=== PATIENT | female | born 1970 | race Caucasian/White ===

== ENCOUNTER 2024-08-09 15:34 | Emergency (ER) | payer BC, SELFPAY ==
[2024-08-09 16:00] VITALS: BP 124/75; PULSE 69; RESP 20; TEMP 37; O2SAT 98; BMI 23.8
--- NOTE | 2024-08-09 16:15 | ED_ITS ---
Discharge Plan Referrals Follow up/Referrals: Oliver Da Silva [Primary Care Provider] - See instructions Print Language Print Language: Polish Discharge ED Provider: Seamus Gandara [facility] General Stated complaint: AO 08/08/24 2200 injury right thumb Mode of Arrival: Ambulatory Source of Information: Patient Limitations: No Limitations Time Seen by Provider: 08/09/24 16:15 Description of Symptoms (Recalled from Triage Doc. by RN): PATIENT STATES SHE HIT HER RIGHT THUMNAIL ON THE METAL POLE OF A TRAMPOLINE LAST NIGHT AND IT PARTIALLY TORE HER NAIL OFF HEENT Symptoms (Recalled from RN notes): No Resp Symptoms (Recalled from RN notes): No Skin Symptoms (Recalled from RN notes): Yes MS Symptoms (Recalled from RN notes): No Functional Status (Recalled from RN notes): WNL History of Present Illness Provider Complaint: Patient states that last night she took her dog out and it was on a retractable leash States that the dog took off and her right thumbnail jammed into the metal pole on the trampoline States that it ripped her nail back States that she grabbed her thumb and her said part of the nail was outside of the cuticle and she tried to push it back in States today it has been hurting her and still having some bleeding from under the nail and she came in to get it checked Related Data Allergies Allergy/AdvReac Type Severity Reaction Status Date / Time No Known Allergies Allergy Verified 08/09/24 16:16 Worker's Comp Is this a Worker's Comp case?: No [facility] Disclaimer: The information contained in this section may have been updated after the patient was seen, as this information can be updated by other users. Medical History (Updated 08/09/24 @ 16:15 by Angela Tamayo RN) Skin cancer Asthma Surgical History (Updated 08/09/24 @ 16:15 by Angela Tamayo RN) History of appendectomy History of tonsillectomy History of hysterectomy Social History Smoking Status: Unknown if ever smoked alcohol intake: never current occupational status: employed Travel in the last 8 weeks: None ROS Obtained: Yes All systems reviewed & no additional complaints except as documented and Yes Systems reviewed as appropriate & no additional complaints except as documented Constitutional Constitutional: Reports system reviewed and no additional complaints, except as documented and Reports as per HPI ENT Ears, Nose, Mouth, and Throat: Reports system reviewed and no additional complaints, except as documented and Reports as per HPI Cardiovascular Cardiovascular: Reports system reviewed and no additional complaints, except as documented and Reports as per HPI Respiratory Respiratory: Reports system reviewed and no additional complaints, except as documented and Reports as per HPI Gastrointestinal Gastrointestingal: Reports system reviewed and no additional complaints, except as documented and as per HPI Musculoskeletal Musculoskeletal: Reports system reviewed and no additional complaints, except as documented and Reports as per HPI Comments: hit right thumbnail against trampoline last night bending nail back, having bleeding and pain ever since Physical Exam General General appearance: alert and in no apparent distress Respiratory Respiratory exam: Present normal lung sounds bilaterally; Absent respiratory distress or wheezes Cardiovascular Cardiovascular exam: Present regular rate, normal rhythm and normal heart sounds Expanded Upper Extremity Exam Right: Hand L/R back image: 2 1. reports that she bent her nail back last night and tried to push it back under cuticle, bleeding noted under nail Neurological Exam Neurological exam: Present alert, oriented X3 and normal gait Medical Decision Making Scott Inquiry Pt receiving controlled substance: No Scott was queried for this patient: No Vital Signs: 08/09/24 16:00 Temperature 98.6 F Temperature Source Oral Pulse Rate [Left Brachial] 69 Respiratory Rate 20 Blood Pressure [Left Arm] 124/75 Blood Pressure Mean [Left Arm] 91 Blood Pressure Source [Left Arm] Automatic Cuff Blood Pressure Position [Left Arm] Sitting 02 Sat by Pulse Oximetry 98 Oxygen Delivery Method Room Air Medical Decision Narrative: nailbed injury, patient reports hit nail against metal on trampoline last night and bent her nail back, states she noticed one side of nail appeared to be outside of cuticle and she attempted to push it back in but since has been having bleeding and pain under the nail Discussed with patient and will transfer to the ED for further evaluation and treatment and she agreed Called ED and patient was moved to the ED for further treatment
--- NOTE | 2024-08-09 16:24 | PC.NURSE ---
PATIENT SENT TO ER PER Jona SEGURA APRN FOR FURTHER EVALUATION. REPORT GIVEN TO DR. MEJIA PER Jona SEGURA APRN. PATIENT AMBULATED TO ER WITH [facility] STAFF AT THIS TIME
[2024-08-09 16:31] VITALS: BP 120/59; PULSE 80; RESP 16; TEMP 37; O2SAT 98; BMI 29.8
--- NOTE | 2024-08-09 16:47 | XR_ITS ---
PROCEDURE INFORMATION: Exam: XR Right Hand Exam date and time: 08/09/2024 4:49 PM Age: 54 years old Clinical indication: Pain; Finger(s); Right; Additional info: Distal thumb injury TECHNIQUE: Imaging protocol: Radiologic exam of the right hand. Views: 3 or more views. COMPARISON: No relevant prior studies available. FINDINGS: Bones/joints: Normal. Soft tissues: Normal. IMPRESSION: No acute findings.
--- NOTE | 2024-08-09 16:49 | ED_ITS ---
Discharge Plan Disposition Patient Disposition: Home, Self-Care Condition: Good Referrals Follow up/Referrals: Oliver Da Silva [Primary Care Provider] - See instructions Activity Restrictions/Add. Instructions Additional Instructions/Restrictions: You can follow-up with your PCP or return to ER for any worsening signs or symptoms including redness swelling increasing pain or drainage. Your nail will take approximately 9 months to fully regrow. You can take Tylenol alternating with Motrin for any symptomatic pain. I provided you with a splint while everything heals and you may wear as tolerated. Clinical Impressions Clinical Impression: Avulsion of nail of right thumb Instructions Patient Instructions: DI for Nail Avulsion Injury Print Language Print Language: Polish Discharge ED Provider: Seamus Gandara General Adult HPI <Seamus Gandara MD - Last Filed: 08/09/24 21:52> General Chief complaint: Skin/Abscess/Foreign Body Stated complaint: AO 08/08/24 2200 injury right thumb Time Seen by Provider: 08/09/24 16:15 Mode of Arrival: Ambulatory Source of Information: Patient Limitations: No Limitations Description of Symptoms (Recalled from ER Triage Doc. by RN): PATIENT STATES SHE HIT HER RIGHT THUMNAIL ON THE METAL POLE OF A TRAMPOLINE LAST NIGHT AND IT PARTIALLY TORE HER NAIL OFF History of Present Illness HPI narrative: Patient is 54-year-old with no pertinent past medical history, right-handed who presents emergency department for evaluation of trauma to her thumb. Patient was being pulled along by her dog when her dog and advertently went under a trampoline and her thumbnail got caught on the middle aspect of the trampoline everting it with significant pain. She has noticed that it was slightly dislodged this morning and oozing blood under the nail causing her to present here for continued evaluation. No other acute complaints Related Data Allergies Allergy/AdvReac Type Severity Reaction Status Date / Time No Known Allergies Allergy Verified 08/09/24 16:16 PFS <Seamus Gandara MD - Last Filed: 08/09/24 21:52> [facility], [facility]–1983 Disclaimer: The information contained in this section may have been updated after the patient was seen, as this information can be updated by other users. Medical History (Updated 08/09/24 @ 17:45 by TASNEEM Little) Skin cancer Asthma Surgical History (Updated 08/09/24 @ 16:15 by Angela Tamayo RN) History of appendectomy History of tonsillectomy History of hysterectomy Social History (Updated 08/09/24 @ 16:28 by Patricia Kwon APRN) Smoking Status: Never smoker alcohol intake: never current occupational status: employed Travel in the last 8 weeks: None <Seamus Gandara MD - Last Filed: 08/09/24 21:52> ROS Obtained: Yes Systems reviewed as appropriate & no additional complaints except as documented Physical Exam <Seamus Gandara MD - Last Filed: 08/09/24 21:52> General General appearance: alert and in no apparent distress Head Head exam: atraumatic and normocephalic Eye Eye exam: Present PERRL and EOMI ENT ENT exam: Present mucous membranes moist Neck Neck exam: Present normal inspection Chest Chest inspection: Present normal inspection and symmetric chest wall rise Respiratory Respiratory exam: Absent respiratory distress Cardiovascular Cardiovascular exam: Present regular rate and normal rhythm Abdominal Exam Abdominal exam: Present soft Extremities Exam Extremities exam: Present other (Synthetic nail over top of [place] nail right thumb, partially avulsed, oozing blood under the nail. Sensation intact to light touch distally, capillary refill preserved right thumb, no significant tenderness with the exception of the nail.) Neurological Exam Neurological exam: Present alert Psychiatric Psychiatric exam: Present normal affect Skin Skin exam: Present warm and dry Medical Decision Making <Seamus Gandara MD - Last Filed: 08/09/24 21:52> Scott Inquiry Pt receiving controlled substance: No Vital Signs: 08/09/24 16:00 08/09/24 16:31 08/09/24 17:00 Temperature 98.6 F 98.6 F Temperature Source Oral Oral Pulse Rate 74 Pulse Rate [Left Brachial] 69 80 Respiratory Rate 20 16 Blood Pressure 126/74 Blood Pressure [Left Arm] 124/75 120/59 L Blood Pressure Mean [Left Arm] 91 79 Blood Pressure Source [Left Arm] Automatic Cuff Automatic Cuff Blood Pressure Position [Left Arm] Sitting 02 Sat by Pulse Oximetry 98 98 100 Oxygen Delivery Method Room Air Room Air Room Air 08/09/24 17:30 08/09/24 17:50 Temperature 98.6 F Temperature Source Pulse Rate 79 82 Pulse Rate [Left Brachial] Respiratory Rate 16 Blood Pressure 123/68 123/68 Blood Pressure [Left Arm] Blood Pressure Mean [Left Arm] Blood Pressure Source [Left Arm] Blood Pressure Position [Left Arm] 02 Sat by Pulse Oximetry 100 Oxygen Delivery Method Room Air Room Air Orders (Tests/Meds): ED MEDICATIONS Discontinued Medications Generic Name Dose Route Start Last Admin Trade Name Elvia PRN Reason Stop Dose Admin Lidocaine/Epinephrine 1 ml 08/09/24 17:19 08/09/24 17:19 Lidocaine 1% W/Epi 1:100,000 20ml Vial IM 08/09/24 17:20 1 ml ONCE ONE Administration ORDERS Category Date Time Status Hand XR right minimum 3 views [XR hand RT min 3V] Stat Exams 08/09/24 16:47 Completed Medical Decision Narrative: In summary patient is 54-year-old female past medical history described above who presents emergency department for evaluation traumatic injury sustained to her thumb. Patient is hemodynamically stable nontoxic-appearing upon arrival, afebrile. Differential includes tuft fracture, nailbed avulsion, nailbed laceration, among others. Limited workup be conducted with plain films. Patient will be blocked and repaired by Andrew Fowler. Plain film informally interpreted by me, no acute displaced fracture. Primary repair performed by Andrew Fowler with success. Patient is appropriate for discharge at this time. <TASNEEM Little - Last Filed: 08/09/24 18:56> Vital Signs: 08/09/24 16:00 08/09/24 16:31 08/09/24 17:00 Temperature 98.6 F 98.6 F Temperature Source Oral Oral Pulse Rate 74 Pulse Rate [Left Brachial] 69 80 Respiratory Rate 20 16 Blood Pressure 126/74 Blood Pressure [Left Arm] 124/75 120/59 L Blood Pressure Mean [Left Arm] 91 79 Blood Pressure Source [Left Arm] Automatic Cuff Automatic Cuff Blood Pressure Position [Left Arm] Sitting 02 Sat by Pulse Oximetry 98 98 100 Oxygen Delivery Method Room Air Room Air Room Air 08/09/24 17:30 08/09/24 17:50 Temperature 98.6 F Temperature Source Pulse Rate 79 82 Pulse Rate [Left Brachial] Respiratory Rate 16 Blood Pressure 123/68 123/68 Blood Pressure [Left Arm] Blood Pressure Mean [Left Arm] Blood Pressure Source [Left Arm] Blood Pressure Position [Left Arm] 02 Sat by Pulse Oximetry 100 Oxygen Delivery Method Room Air Room Air Orders (Tests/Meds): ED MEDICATIONS Discontinued Medications Generic Name Dose Route Start Last Admin Trade Name Elvia PRN Reason Stop Dose Admin Lidocaine/Epinephrine 1 ml 08/09/24 17:19 08/09/24 17:19 Lidocaine 1% W/Epi 1:100,000 20ml Vial IM 08/09/24 17:20 1 ml ONCE ONE Administration ORDERS Category Date Time Status Hand XR right minimum 3 views [XR hand RT min 3V] Stat Exams 08/09/24 16:47 Completed Procedures <TASNEEM Little - Last Filed: 08/09/24 18:56> Miscellaneous Procedure Procedure Performed: Completion of nail avulsion and reimplantation of nail Patient underwent sterile prep then a digital nerve block was performed of the right thumb. After adequate anesthesia was obtained avulsion was completed utilizing curved Loida forceps. Examination of the nailbed shows no fracture requiring suture. Nail cleaned of debris nailbed prepped with soap and water and then utilizing Dermabond nail was put back in the eponychium and fixed in place. Critical Care <TASNEEM Little - Last Filed: 08/09/24 18:56> Critical Care Time Critical Care Time: No
[2024-08-09 17:00] VITALS: BP 126/74; PULSE 74; O2SAT 100
[2024-08-09] MEDS: LIDOCAINE 1% W/EPI 1:100,000 20ML VIAL IM (17:19)
[2024-08-09 17:30] VITALS: BP 123/68; PULSE 79; O2SAT 100
[2024-08-09 17:50] VITALS: BP 123/68; PULSE 82; RESP 16; TEMP 37; O2SAT 100
== END 2024-08-09 17:51 | disposition home or self-care (01) ==
LOC: UTC 16:08 → ER 16:23
PROVIDERS: Emergency Provider Emergency Medicine; PCP Family Medicine
DX: S61.101A Unspecified open wound of right thumb with damage to nail, initial encounter (principal); W22.8XXA Striking against or struck by other objects, initial encounter
CPT/HCPCS: 11760; 73130; 99283